=== PATIENT | male | born 1985 | race Caucasian/White ===

== ENCOUNTER 2024-03-29 09:32 | Outpatient (AMB) | payer OTHER, SELFPAY ==
--- NOTE | 2024-03-29 09:40 | MHC.OFFWIV ---
Intake Vital Signs 03/29/24 09:41 Height 5 ft 6 in Weight 215 lb BMI 34.7 BP 110/80 Blood Pressure Location Lt brachial Position Sitting Pulse 77 Pulse Source Pulse Oximeter Temp 97.7 F Temp Source Temporal Artery Scan Pulse Oximetry (%) 95 Oxygen Delivery Method Room Air Intake Visit Reasons: COLLECTION ADMINISTRATOR Cough, Diff breathing, congestion Intake Note: pt is here today for cough diff breathing congestion started 10 days ago Patient Tobacco Use Status: Current everyday Tobacco user Allergies No Known Allergies Allergy (Verified 03/29/24 09:43) Do you need a note to return to daycare/school/sports/work: No HPI HPI Comments History of Present Illness Details Patient is a 39-year-old male in today for sick visit. States he has developed cough and chest tightness for the past 10 days that has gotten progressively worse. Patient states it is worse at night. Has not seen primary care provider in over 10 years. Current everyday cigarette smoker. Denies sick contacts. Denies fever, sore throat, dizziness, chest pain, shortness a breath Patient states chief complaint are cough and chest tightness. Not currently taking any medications On exam patient has bilateral wheeze throughout. Not expectorating mucus at this time. No fever. Not in acute distress. Heart sounds normal. S1-S2. Will administer an office nebulizer treatment. Will give patient albuterol, prednisone, Symbicort. PFSH Social History Patient Tobacco Use Status: Current everyday Tobacco user Review of Systems Const All systems reviewed & are unremarkable except as noted in HPI and below Denies chills and Denies malaise Eyes Denies blurry vision ENT Denies vertigo, Denies dizziness, Denies otalgia, Denies post nasal drip, Denies sinus pain and Denies sore throat Card Denies chest pain, Denies leg edema, Denies lightheadedness and Denies dyspnea Resp Reports cough and Denies dyspnea GI Denies diarrhea, Denies nausea and Denies vomiting Neuro Denies vertigo and Denies dizziness Physical Exam Vital Signs: Last Vital Signs Temp 97.7 F 03/29/24 09:41 Pulse 77 03/29/24 09:41 BP 110/80 03/29/24 09:41 Pulse Ox 95 03/29/24 09:41 Oxygen Delivery Method Room Air 03/29/24 09:41 BMI result Body Mass Index 34.7 Vital signs reviewed stable. Const Other: Appearance: Alert.? Oriented X3.? No acute distress.? Head: Normocephalic, atraumatic, no step-offs or deformities Eyes: Pupils equal, round and reactive to light.? ENT: Pharynx normal.?TM intact and pearly delgado. Neck: Normal inspection.? Neck supple.? CVS: Normal heart rate and rhythm.? Pulses normal.? Respiratory: No respiratory distress.? bilateral wheeze upper lobes. ? Extremities: No lower extremity edema.? Neuro: Oriented X 3.? No motor deficit.? No sensory deficit. Office Procedures Nebulizer Treatment Nebulizer Treatment [id number]-Addrsmvgu/MDI RX initial, or Nebulizer Subsequent Treatment Office Meds ipratropium 0.5 mg-albuterol 3 mg (2.5 mg base)/3 mL nebulization soln Performing Provider: WARREN Pickett Performing Location: [facility]3] Administered by: WARREN Pickett on 03/29/24 10:01 Dose Route Admin Location Dispensed Lot Number Expiration Date [facility] Can Sorter 3 mL inhalation 3 mL [id number] 12/23/24 18550-006-59 Assessment & Plan Assessment & Plan (1) Bronchitis: Comment: Patient had in office nebulization treatment with good effect. Will also give patient prednisone, albuterol, Symbicort. Patient has been advised to stop cigarette smoking. Patient has also been advised to establish care with PCP. Has been educated on signs of worsening symptoms and when to report back to the office or when to report to the ED Code(s): J40 - Bronchitis, not specified as acute or chronic Plan: Take your medications as prescribed. If you were prescribed antibiotics today, it is important that you take your medication to their entirety, do not skip any doses, do not finish them early. Follow-up with your primary care provider this week. Return to the emergency department with new or worsening symptoms. Such as fevers, chills, chest pain, shortness of breath, nausea, vomiting, dizziness, headache, vision changes, lethargy In case of emergency call 911 Plan Follow-up with PCP Orders: Orders AMB Nebulizer Treatment Today J40 - Bronchitis, not specified as acute or chronic SARS-CoV2/FLU/RSV Today J06.9 - Acute upper respiratory infection, unspecified Medications: New budesonide-formoterol 160-4.5 mcg/actuation (Symbicort) 2 puffs inhalation BID 10.2 grams 0RF prednisone 40 mg (2 x 20 mg) PO DAILY 10 tabs 0RF albuterol sulfate 90 mcg/actuation 2 puffs inhalation Q6H PRN 6.7 grams 0RF shortness of breath or wheezing Coding Level of Care Code Est Pt Level 3 (97699) Diagnoses Bronchitis J40 CPT Codes Nebulizer Treatment - Nebulizer Treatment, initial or subsequent: 85639-Neyhyufxp/MDI RX initial, or Nebulizer Subsequent Treatment ([id number]) Time Spent (min) 25
[2024-03-29 09:41] VITALS: BP 110/80; PULSE 77; TEMP 36.5; O2SAT 95; BMI 34.7
== END 2024-03-29 10:30 | disposition home or self-care (01) ==
PROVIDERS: Visit Provider Nurse Practitioner Primary Care
DX: J40 Bronchitis, not specified as acute or chronic (principal)
CPT/HCPCS: 94640; 99213; J7620

== ENCOUNTER 2024-03-29 13:19 | Outpatient (REF) | payer OTHER, SELFPAY ==
[2024-03-29 14:04] LABS: Influenza A PCR NEGATIVE (Negative); Influenza B PCR NEGATIVE (Negative); Resp Syncy Virus RNA Qual PCR NEGATIVE (Negative); SARS COV2 PCR INHOUSE NEGATIVE (Negative)
== END 2024-03-29 13:20 | disposition home or self-care (01) ==
LOC: HO.HMGCLNP 13:19
PROVIDERS: Visit Provider Nurse Practitioner Primary Care
DX: J06.9 Acute upper respiratory infection, unspecified (principal)
CPT/HCPCS: 0241U

== ENCOUNTER 2024-11-20 09:14 | Outpatient (REF) | payer OTHER, SELFPAY ==
--- NOTE | ~2024-11-20 | XR_ITS ---
CLINICAL HISTORY: R05.9 - Cough, unspecified 2 view chest Comparison: None Findings: No consolidation or pneumothorax/pleural effusion. Mild peribronchial wall thickening. Cardiomediastinal silhouette is normal. No mediastinal shift or tracheal deviation. Osseous structures intact. Impression: 1. Mild central bronchial wall thickening. 2. No airspace disease. This document has been electronically signed by: Eric Mar MD on 11/23/2024 11:39:02
[2024-11-20 10:43] LABS: MANUAL DIFF FLAG NO
[2024-11-20 10:51] LABS: Basophils Absolute Auto 0.1 X10*3/uL (0.0-0.2); Basophils Percent Auto 0.8 % (0-2); Eosinophils Absolute Auto 0.1 X10*3/uL (0.0-0.4); Eosinophils Percent Auto 1.5 % (0-4); Hematocrit 46.3 % (42.0-52.0); Imm Gran Abs Auto 0.01 X10*3/uL (0.00-0.03); Imm Gran Pct Auto 0.2 % (0.0-0.4); Lymphocytes Absolute Auto 2.5 X10*3/uL (1.2-4.9); Lymphocytes Percent Auto 37.9 % (20-40); Mean Corpuscular HGB Conc 34.6 g/dl (31.0-36.0); Mean Corpuscular Hemoglobin 30.2 pg (27.0-33.0); Mean Corpuscular Volume 87.5 fL (80.0-98.0); Monocytes Absolute Auto 0.6 X10*3/uL (0.1-1.2); Monocytes Percent Auto 9.3 % (2-11); Neutrophils Absolute Auto 3.3 x10*3/uL (2.0-8.3); Neutrophils Percent Auto 50.3 % (45-73); Platelet Count 303 X10*3/uL (160-400); Red Blood Count 5.29 X10*6/uL (4.60-5.80); Red Cell Distribution Width 12.6 % (11.0-16.0); White Blood Count 6.6 X10*3/uL (4.8-10.8)
[2024-11-20 11:16] LABS: Appearance Urine Clear; Color Urine Dark Yellow; Glucose Urine UA Negative (Negative); Leukocyte Esterase Urine Negative (Negative); Nitrite Urine Negative (Negative); PH 5.5 (5.0-9.0); Specific Gravity - Urine 1.025 (1.005-1.025); UMIC TRIGGER UACC YES; Urine Blood Negative (Negative); Urine Ketones Trace mg/dL (Negative); Urine Protein 30 (1+) mg/dL (Neg-Trace)
[2024-11-20 11:25] LABS: Bacteria Urine None Seen (None Seen); Hyaline Casts Urine 0-2 /LPF (0-2); RBC Urine 0-2 /HPF (0-2); Squamous Epithelial Cell Urine 0-2 /HPF (0-2); WBC Urine 0-5 /HPF (0-5)
[2024-11-20 11:25] LABS: Alanine Aminotransferase 45 U/L (0-40); Albumin Level 4.5 g/dL (3.5-5.0); Alkaline Phosphatase 101 U/L (39-117); Anion Gap 9 (12-20); Aspartate Amino Transferase 29 U/L (5-37); Bilirubin Total 0.4 mg/dL (0.0-1.0); Blood Urea Nitrogen 8 mg/dL (9-16); Calcium 9.4 mg/dL (8.4-10.2); Carbon Dioxide 29 mmol/L (22-29); Chloride 105 mmol/L (96-108); Cholesterol 301 mg/dL (<200); Estimated Glomerular Filt Rate > 60; Glucose Fasting 89 mg/dL (60-99); HDL Cholesterol 37 mg/dL (>40); LDL Cholesterol Calculated 219 mg/dL (<100); Potassium 4.4 mmol/L (3.3-5.1); Sodium 139 mmol/L (135-145); Total Protein 8.2 g/dL (6.5-8.0); Triglycerides 228 mg/dL (<150)
[2024-11-20 11:42] LABS: TSH reflex Free T4 2.48 uIU/mL (0.32-4.0); Vitamin D 25-OH Total 10.5 ng/mL (>30)
== END 2024-11-20 09:15 | disposition home or self-care (01) ==
LOC: HO.XRAY 09:14
PROVIDERS: Visit Provider Internal Medicine
DX: Z00.00 Encounter for general adult medical examination without abnormal findings (principal); E78.00 Pure hypercholesterolemia, unspecified; E55.9 Vitamin D deficiency, unspecified; E66.9 Obesity, unspecified; Z68.36 Body mass index [BMI] 36.0-36.9, adult; D64.9 Anemia, unspecified; R05.9 Cough, unspecified; R30.0 Dysuria; F17.200 Nicotine dependence, unspecified, uncomplicated
CPT/HCPCS: 36415; 71046; 80053; 80061; 81001; 82306; 84443; 85025; 96127; 99386

== ENCOUNTER 2024-11-20 09:14 | Outpatient (AMB) | payer OTHER, SELFPAY ==
[2024-11-20 09:16] VITALS: BP 110/78; PULSE 79; O2SAT 95; BMI 36.0
--- NOTE | 2024-11-20 09:16 | A.OFFPC_ITS ---
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 Accompanied by: Self / Same As Patient Allergies No Known Allergies Allergy (Verified 11/20/24 09:47) Medication List - Last Reconciled 11/20/24 by Alexys Gonzalez MD albuterol sulfate 90 mcg/actuation 2 puffs inhalation Q6H PRN budesonide-formoterol 160-4.5 mcg/actuation (Symbicort) 2 puffs inhalation BID Tobacco use date assessed: 11/20/24 Dental Screening Dental Screen Date: 11/20/24 Did you have a dental visit in the last 12 months?: No Did you have a dental problem in the last 6 months where you did not have access to dental care?: No Was dental information given to patient?: Patient has dentist HPI establish care/ requesting pe HPI Details Patient comes in today for his annual physical examination and to reestablish care - he used to see Dr. Jn masters at our office in [place] but has not been back to see her since his last visit on 11/18/2018 Patient states that he currently feels okay and mainly just needs his Symbicort Rx refilled He denies any headaches or dizziness Denies any chest pains, no SOB No nausea/vomiting, no abdominal pain No change in bowel habits noted He denies any acute urinary symptoms States that he is currently still smoking a pack a day and has been smoking since 2004 [facility] Medical History Spondylolisthesis of lumbosacral region Obesity (BMI 30-39.9) Vitamin D deficiency Pure hypercholesterolemia Smoker Surgical History (Updated 11/20/24 @ 10:11 by Alexys Gonzalez MD) No pertinent past surgical history Family History (Updated 11/20/24 @ 11:05 by Alexys Gonzalez MD) Mother Diabetes mellitus Father Myocardial infarction Social History Housing: Apartment Patient Tobacco Use Status: Current everyday Tobacco user e-Cigarette/Vaping Use: Never Used service: No Current occupational status: unemployed Current occupational exposures/hazards: No Cognitive needs: No Hearing needs: No Vision needs: No Questionnaire PHQ-9 Over the last 2 weeks, how often have you been bothered by any of the following problems? 1. Little interest or pleasure in doing things: not at all 2. Feeling down, depressed, or hopeless: not at all 3. Trouble falling or staying asleep, or sleeping too much: not at all 4. Feeling tired or having little energy: not at all 5. Poor appetite or overeating: not at all 6. Feeling bad about yourself - or that you are a failure or have let yourself or your family down: not at all 7. Trouble concentrating on things, such as reading the newspaper or watching television: not at all 8. Moving or speaking so slowly that other people could have noticed. Or the opposite - being so fidgety or restless that you have been moving around a lot more than usual: not at all 9. Thoughts that you would be better off or of hurting yourself in some way: not at all Total score: 0 Depression Screening Interpretation: Negative Depression Screening Done: Yes 49764 - PHQ-9 Billing: Yes Source: Developed by Drs. Bradley Jacobson, Nikky Evangelista, Car Ferrer and colleagues, with an educational fernanda from [employer]. Thrive Questionnaire Date Thrive assessed: 11/20/24 I am a: Patient What is your living situation today?: I have a steady place to live Within the past 12 months, did the food you bought not last and you didn't have the money to get more?: Never true Within the past 12 months, did you worry whether your food would run out before you got money to buy more?: Never true Do you have trouble paying for medicines?: No Do you have trouble getting transportation to medical appointments?: No Do you have trouble paying your heating and electricity bill?: No Do you have trouble taking care of your child, family member or friend?: No Do you have trouble with day-to-day activities such as bathing, preparing meals, shopping, managing finances, etc.?: No Are you currently unemployed and looking for a job?: No Are you interested in more education?: No Please select the resources that you would like help with: None Currently or been in a relationship where the following occur: No concerns reported THRIVE Score: 0 AUDIT C Alcohol Use Questionnaire (AUDIT-C) 1. How often do you have a drink containing alcohol?: Never 3. How often do you have six or more drinks on one occasion?: Never Total Score: 0 Score Reviewed/Action Taken: Yes TC-7 AMB Questionnaire TC-7 Date TC - 7 assessed: 11/20/24 Feeling nervous, anxious, or on edge: 0 = Not at all Not being able to stop or control worryin = Not at all Worrying too much about different things: 0 = Not at all Trouble relaxin = Not at all Being so restless that it is hard to sit still: 0 = Not at all Becoming easily annoyed or irritable: 0 = Not at all Feeling afraid as if something awful might happen: 0 = Not at all Total TC-7 score (0-4 normal; 5-9 mild; 10-14 moderate; 15-21 severe): 0 Source: Developed by Drs. Bradley Jacobson, Nikky Evangelista, Car Ferrer and colleagues, with an educational fernanda from [employer]. Review of Systems Const Denies chills, Denies fatigue, Denies fever(s), Denies headache(s), Denies malaise and Denies weakness Eyes Denies blurry vision, Denies change in vision, Denies irritation and Denies itchy eyes ENT Denies dysphagia, Denies dizziness, Denies otalgia, Denies headache(s), Denies nasal congestion, Denies neck pain, Denies odynophagia and Denies sore throat Card Denies chest pain, Denies rapid heart rate, Denies irregular heart rhythm, Denies palpitations and Denies dyspnea Resp Reports chest congestion (at times, mostly mild - thinks this is related to his smoking), Reports cough (on and off - thinks this is mostly because of his smoking), Denies dyspnea and Denies wheezing GI Denies abdominal pain, Denies bloating, Denies constipation, Denies dysphagia, Denies heartburn, Denies diarrhea, Denies nausea, Denies odynophagia and Denies vomiting Denies hematuria, Denies difficulty urinating, Denies dysuria, Denies urinary frequency and Denies urinary urgency Musc Reports back pain (on and off, over the lower back), Denies arthralgias, Denies joint swelling, Denies muscle weakness and Denies neck pain Skin/Breast Denies change in pigmentation, Denies lesions, Denies rash and Denies unusual bruising Neuro Denies dizziness, Denies headache(s), Denies paresthesias and Denies weakness Endo Denies fatigue and Denies palpitations Aller/Immun Denies itchy eyes and Denies wheezing Physical exam (Primary Care) Vital Signs: Last Vital Signs Pulse 79 11/20/24 09:16 BP 110/78 11/20/24 09:16 Pulse Ox 95 11/20/24 09:16 Oxygen Delivery Method Room Air 11/20/24 09:16 BMI result Body Mass Index 36.0 Tobacco/Smoking Status: Tobacco use Status Tobacco use date assessed 11/20/24 11/20/24 09:19 Patient Tobacco Use Status Current everyday Tobacco 11/20/24 09:19 e-Cigarette/Vaping Use Never Used 11/20/24 09:26 PHQ-9: PHQ-9 Score PHQ-9: Total score 0 11/20/24 09:26 Depression Screening Interpretation: Negative Thrive Assessment: Date of Thrive Assessment Date Thrive assessed 11/20/24 11/20/24 09:26 Currently or been in a relationship where the following occur: No concerns reported Const General: no acute distress, alert and awake Orientation/consciousness: patient oriented x3 HENMT Head: Yes normocephalic and Yes atraumatic Ears: external ears normal, TM's normal bilaterally and EAC's normal General nose exam: No nasal discharge present Face and sinus: Yes normal facial exam and Yes sinuses nontender Teeth and gingiva: dentition normal Throat: Yes posterior oropharynx normal and Yes tonsils normal (no TP congestion) Eyes Eyelids: Yes eyelids normal Conjunctivae: conjunctivae normal Pupils: Equal, round and reactive pupils present EOM: EOMs intact bilaterally Neck Neck: Yes supple and No lymphadenopathy Thyroid: Thyroid normal Resp Auscultation: clear to auscultation bilaterally, no rales, rhonchi (occasional) and no wheezes Cardio Rate: regular rate Rhythm: regular rhythm Heart sounds: no murmurs GI Palpation (GI): Soft to palpation, nontender and No hepatosplenomegaly present Auscultation: normal bowel sounds General: Yes no CVA tenderness Back/Spine/Pelvis Back: no CVA tenderness Cervical Spine: No Cervical spine tenderness Thoracic/Lumbar Spine: lumbar spinal tenderness (mild) Skin Lesions: no lesions Rashes: no rashes Neuro General: patient oriented x3, moves all extremities, no focal motor deficits and CN's II-XI intact bilaterally Cranial nerves: Yes Equal, round and reactive pupils present Cognition (Neuro): normal cognition Gait exam (Neuro): Normal gait present Extrem General: Yes no clubbing, cyanosis or edema Coding Level of Care Code New Pt Prev Care 40-64y(80502) Diagnoses Annual physical exam Z00.00 Pure hypercholesterolemia E78.00 Vitamin D deficiency E55.9 Smoker F17.200 Obesity (BMI 30-39.9) E66.9 Additional Codes PHQ-9 - 17104 - PHQ-9 Billing: Yes ([id number]) Assessment & Plan Assessment & Plan (1) Annual physical exam: Code(s): Z00.00 - Encounter for general adult medical examination without abnormal findings Category: Medical Plan: Check labs (2) Pure hypercholesterolemia: Code(s): E78.00 - Pure hypercholesterolemia, unspecified Category: Medical Plan: His LDL cholesterol level was very high at 194 mg/dl when it was last checked in 2018 Reinforced low cholesterol diet Patient used to be on Simvastatin 10 mg QD but he has not taken the medication in over 5 years now Will have him recheck his labs and fasting lipids and if his cholesterol numbers remain high or are even higher than previous, then we will likely need to start him back on some Rx for his cholesterol (3) Vitamin D deficiency: Code(s): E55.9 - Vitamin D deficiency, unspecified Category: Medical Plan: Will also recheck his Vitamin D level for follow up - states that he has not taken any Vitamin D supplements in a few years now (4) Smoker: Code(s): F17.200 - Nicotine dependence, unspecified, uncomplicated Category: Social Hx Plan: Patient is counseled again on smoking cessation - states that he has no plans to quit at this time Per request, will refill his Rx for Symbicort 160-4.5 mcg 1 inhalation BID Continue Ventolin HFA 1 to 2 inhalations Q 6 hours PRN for now Will send him for chest x-rays for further evaluation but will consider having him go for PFTs at some point for further evaluation as he denies any Hx of asthma (although his previous PCP marked asthma as one of his diagnosis in his chart) and thinks that he is using his inhalers mostly because of his smoking (5) Obesity (BMI 30-39.9): Code(s): E66.9 - Obesity, unspecified Category: Medical Plan: Discussed diet/exercise as tolerated/lose weight Plan Follow up in 3 months Orders: Orders Complete Blood Count Auto Diff Today D64.9 - Anemia, unspecified, Z00.00 - Encounter for general adult medical examination without abnormal findings Comprehensive [place]. Panel Fast Today E78.00 - Pure hypercholesterolemia, unspecified, Z00.00 - Encounter for general adult medical examination without abnormal findings TSH reflex Free T4 Today E78.00 - Pure hypercholesterolemia, unspecified, Z00.00 - Encounter for general adult medical examination without abnormal findings UA CC w/rflx Micro + Cult Today R30.0 - Dysuria, Z00.00 - Encounter for general adult medical examination without abnormal findings Vitamin D 25-OH Total Today E55.9 - Vitamin D deficiency, unspecified, Z00.00 - Encounter for general adult medical examination without abnormal findings Lipid Panel Today E78.00 - Pure hypercholesterolemia, unspecified, Z00.00 - Encounter for general adult medical examination without abnormal findings XR chest 2V Today F17.200 - Nicotine dependence, unspecified, uncomplicated, R05.9 - Cough, unspecified Medications: Refilled budesonide-formoterol 160-4.5 mcg/actuation (Symbicort) 2 puffs inhalation BID 10.2 grams 3RF
== END 2024-11-20 10:03 | disposition home or self-care (01) ==
PROVIDERS: Visit Provider Internal Medicine
DX: Z00.00 Encounter for general adult medical examination without abnormal findings (principal); E78.00 Pure hypercholesterolemia, unspecified; E66.9 Obesity, unspecified; Z68.36 Body mass index [BMI] 36.0-36.9, adult; E55.9 Vitamin D deficiency, unspecified; F17.200 Nicotine dependence, unspecified, uncomplicated

== ENCOUNTER → 2024-11-20 10:49 | Outpatient (BNV) | payer OTHER, SELFPAY | PROVIDERS: Visit Provider Radiology Diagnostic Radiology | DX: R05.9 Cough, unspecified (principal); J98.09 Other diseases of bronchus, not elsewhere classified | CPT/HCPCS: 71046 ==

== ENCOUNTER 2025-02-20 10:37 | Outpatient (AMB) | payer OTHER, SELFPAY ==
[2025-02-20 10:59] VITALS: BP 116/80; PULSE 84; O2SAT 98; BMI 36.0
--- NOTE | 2025-02-20 10:59 | A.OFFPC_ITS ---
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 Accompanied by: Self / Same As Patient Allergies No Known Allergies Allergy (Verified 02/20/25 11:38) Medication List - Last Reconciled 02/20/25 by Alexys Gonzalez MD albuterol sulfate 90 mcg/actuation 2 puffs inhalation Q6H PRN budesonide-formoterol 160-4.5 mcg/actuation (Symbicort) 2 puffs inhalation BID Tobacco use date assessed: 02/20/25 Dental Screening Dental Screen Date: 02/20/25 Did you have a dental visit in the last 12 months?: Yes Did you have a dental problem in the last 6 months where you did not have access to dental care?: No Was dental information given to patient?: Patient has dentist HPI Follow Up HPI Details Patient comes in today for his follow up visit States that he has a painful wart on the plantar aspect of his left foot that has been bothering him (pain) for at least the past 2 months now States that he feels okay otherwise He denies any headaches or dizziness Denies any chest pains, no shortness of breath No nausea/vomiting, no abdominal pain No change in bowel habits noted Adds that he also has had blurring of vision in both eyes for a while now and he finds it hard to read nowadays - would like to have his eyes checked out He would also like to go over the results of his labs done back at the end of October 2024 after he had his last physical examination [facility] Medical History Elevated LFTs Mixed hyperlipidemia Spondylolisthesis of lumbosacral region Obesity (BMI 30-39.9) Vitamin D deficiency Pure hypercholesterolemia Smoker Surgical History No pertinent past surgical history Family History Mother Diabetes mellitus Father Myocardial infarction Social History Housing: Apartment Patient Tobacco Use Status: Current everyday Tobacco user e-Cigarette/Vaping Use: Never Used service: No Current occupational status: unemployed Current occupational exposures/hazards: No Cognitive needs: No Hearing needs: No Vision needs: No Questionnaire PHQ-9 Over the last 2 weeks, how often have you been bothered by any of the following problems? 1. Little interest or pleasure in doing things: not at all 2. Feeling down, depressed, or hopeless: not at all 3. Trouble falling or staying asleep, or sleeping too much: not at all 4. Feeling tired or having little energy: not at all 5. Poor appetite or overeating: not at all 6. Feeling bad about yourself - or that you are a failure or have let yourself or your family down: not at all 7. Trouble concentrating on things, such as reading the newspaper or watching television: not at all 8. Moving or speaking so slowly that other people could have noticed. Or the opposite - being so fidgety or restless that you have been moving around a lot more than usual: not at all 9. Thoughts that you would be better off or of hurting yourself in some way: not at all Total score: 0 Depression Screening Interpretation: Negative Depression Screening Done: Yes 86689 - PHQ-9 Billing: Yes Source: Developed by Drs. Bradley Jacobson, Nikky Evangelista, Car Ferrer and colleagues, with an educational fernanda from [employer]. Thrive Questionnaire Date Thrive assessed: 02/20/25 I am a: Patient What is your living situation today?: I have a steady place to live Within the past 12 months, did the food you bought not last and you didn't have the money to get more?: Never true Within the past 12 months, did you worry whether your food would run out before you got money to buy more?: Never true Do you have trouble paying for medicines?: No Do you have trouble getting transportation to medical appointments?: No Do you have trouble paying your heating and electricity bill?: No Do you have trouble taking care of your child, family member or friend?: No Do you have trouble with day-to-day activities such as bathing, preparing meals, shopping, managing finances, etc.?: No Are you currently unemployed and looking for a job?: No Are you interested in more education?: No Please select the resources that you would like help with: None Currently or been in a relationship where the following occur: No concerns reported THRIVE Score: 0 AUDIT C Alcohol Use Questionnaire (AUDIT-C) 1. How often do you have a drink containing alcohol?: Never 3. How often do you have six or more drinks on one occasion?: Never Total Score: 0 Score Reviewed/Action Taken: Yes TC-7 AMB Questionnaire TC-7 Date TC - 7 assessed: 02/20/25 Feeling nervous, anxious, or on edge: 0 = Not at all Not being able to stop or control worryin = Not at all Worrying too much about different things: 0 = Not at all Trouble relaxin = Not at all Being so restless that it is hard to sit still: 0 = Not at all Becoming easily annoyed or irritable: 0 = Not at all Feeling afraid as if something awful might happen: 0 = Not at all Total TC-7 score (0-4 normal; 5-9 mild; 10-14 moderate; 15-21 severe): 0 Source: Developed by Drs. Bradley Jacobson, Nikky Evangelista, Car Ferrer and colleagues, with an educational fernanda from [employer]. Review of Systems Const Denies chills, Denies fatigue, Denies fever(s) and Denies headache(s) Eyes Reports blurry vision (in both eyes) ENT Denies dysphagia, Denies dizziness, Denies otalgia, Denies headache(s), Denies neck pain, Denies odynophagia and Denies sore throat Card Denies chest pain, Denies irregular heart rhythm, Denies palpitations and Denies dyspnea Resp Reports chest congestion (at times, mostly mild - thinks this is related to his smoking), Reports cough (on and off - thinks this is mostly because of his smoking), Denies dyspnea and Denies wheezing GI Denies abdominal pain, Denies constipation, Denies dysphagia, Denies heartburn, Denies diarrhea, Denies nausea, Denies odynophagia and Denies vomiting Denies difficulty urinating, Denies dysuria and Denies urinary frequency Musc Reports back pain (on and off, over the lower back), Denies arthralgias and Denies neck pain Skin/Breast Details: (+) large painful wart over the plantar aspect of the left foot Denies rash Neuro Denies dizziness, Denies headache(s) and Denies paresthesias Endo Denies fatigue and Denies palpitations Aller/Immun Denies wheezing Physical exam (Primary Care) Vital Signs: Last Vital Signs Pulse 84 02/20/25 10:59 BP 116/80 02/20/25 10:59 Pulse Ox 98 02/20/25 10:59 Oxygen Delivery Method Room Air 02/20/25 10:59 BMI result Body Mass Index 36.0 Tobacco/Smoking Status: Tobacco use Status Tobacco use date assessed 02/20/25 02/20/25 11:06 Patient Tobacco Use Status Current everyday Tobacco 02/20/25 11:06 e-Cigarette/Vaping Use Never Used 02/20/25 11:06 PHQ-9: PHQ-9 Score PHQ-9: Total score 0 02/20/25 11:50 Depression Screening Interpretation: Negative Thrive Assessment: Date of Thrive Assessment Date Thrive assessed 02/20/25 02/20/25 11:06 Currently or been in a relationship where the following occur: No concerns reported Const General: no acute distress and alert HENMT Ears: TM's normal bilaterally and EAC's normal Throat: Yes posterior oropharynx normal and Yes tonsils normal (no TP congestion) Neck Neck: Yes supple and No lymphadenopathy Thyroid: Thyroid normal Resp Auscultation: clear to auscultation bilaterally, no crackles, no rales, rhonchi (occasional) and no wheezes Cardio Rate: regular rate Rhythm: regular rhythm Heart sounds: no murmurs GI Palpation (GI): Soft to palpation and nontender Auscultation: normal bowel sounds General: Yes no CVA tenderness Back/Spine/Pelvis Back: no CVA tenderness Cervical Spine: No Cervical spine tenderness Thoracic/Lumbar Spine: lumbar spinal tenderness Skin Rashes: no rashes Extrem Other: (+) tender raised wart-like lesion over the plantar aspect of the left foot at the 'ball' portion of the foot General: Yes no clubbing, cyanosis or edema Results Reviewed Results Reviewed: Laboratory Tests 11/20/24 11/20/24 10:36 10:42 WBC 6.6 Hgb 16.0 Hct 46.3 Plt Count 303 Sodium 139 Potassium 4.4 Creatinine 0.75 Estimated GFR > 60 Fasting Glucose 89 Calcium 9.4 AST 29 ALT 45 H Triglycerides 228 H Cholesterol 301 H LDL Cholesterol, Calc 219 H HDL Cholesterol 37 L 25-OH Vitamin D Total 10.5 L TSH 2.48 Ur Specific [place] 1.025 Urine Protein 30 (1+) H Urine Glucose (UA) Negative Urine Blood Negative Urine Nitrite Negative Ur Leukocyte Esterase Negative Coding Level of Care Code Est Pt Level 4 (68087) Complex EM visit Add On G2211 Diagnoses Mixed hyperlipidemia E78.2 Spondylolisthesis of lumbosacral region M43.17 Elevated LFTs R79.89 Vitamin D deficiency E55.9 Blurred vision, bilateral H53.8 Plantar wart of left foot B07.0 Smoker F17.200 Obesity (BMI 30-39.9) E66.9 Additional Codes PHQ-9 - 92651 - PHQ-9 Billing: Yes ([id number]) Assessment & Plan Assessment & Plan (1) Mixed hyperlipidemia: Code(s): E78.2 - Mixed hyperlipidemia Category: Medical Plan: Results of his labs done back in October 2024 reviewed and discussed with patient - have advised patient that his cholesterol numbers are still high and are higher than they were back in 2018 His total cholesterol is currently at 201 mg/dl and LDL cholesterol is at 219 mg/dl; serum TG is also elevated at 228 mg/dl Reinforced low cholesterol diet Have advised patient that he will likely need to go back on cholesterol-lowering medications (was on Simvastatin in the past) but he would like to try lowering his numbers with diet modification at this time States that if he cannot make any headway in his numbers over the next 3 months, then he will agree to go back on cholesterol medications Will have him recheck his labs and fasting lipids in 3 months for follow up (2) Spondylolisthesis of lumbosacral region: Comment: lumbar spine MRI done in 08/2013 revealed (+) grade 1 anterolisthesis at L5-S1, with minimal disc bulge at L1-L2; was seen by Dr. Moise in 08/2015 and recommended conservative management at the time Code(s): M43.17 - Spondylolisthesis, lumbosacral region Category: Medical Plan: Reinforced activity and weight-lifting restrictions (3) Elevated LFTs: Code(s): R79.89 - Other specified abnormal findings of blood chemistry Category: Medical Plan: His serum ALT was slightly elevated on his recent labs; AST was normal This is likely related to his weight (hepatosteatosis) Will continue to monitor his LFTs regularly (4) Vitamin D deficiency: Code(s): E55.9 - Vitamin D deficiency, unspecified Category: Medical Plan: He is advised that his Vitamin D level is very low on his recent labs Will start him on Vitamin D3 2000 units QD (5) Blurred vision, bilateral: Code(s): H53.8 - Other visual disturbances Category: Medical Plan: Will refer patient to ophthalmology for further evaluation and management (6) Plantar wart of left foot: Code(s): B07.0 - Plantar wart Category: Medical Plan: Will refer patient to podiatry for further evaluation and management (7) Smoker: Code(s): F17.200 - Nicotine dependence, unspecified, uncomplicated Category: Social Hx Plan: Patient is counseled again on smoking cessation - states that he has no plans to quit at this time Continue Symbicort 160-4.5 mcg 1 inhalation BID and Ventolin HFA 1 to 2 inhalations Q 6 hours PRN for now We sent him for chest x-rays a few months ago - chest x-rays done in November 2024 came out normal aside from some mild central bronchial wall thickening Will consider sending him for PFTs at some point for further evaluation as he denies any Hx of asthma and he thinks that he is using his inhalers mostly because of his smoking although his previous PCP marked asthma as one of his diagnosis in his chart (8) Obesity (BMI 30-39.9): Code(s): E66.9 - Obesity, unspecified Category: Medical Plan: Reinforced diet/exercise as tolerated/lose weight Plan Follow up in 3 months Orders: Orders Complete Blood Count Auto Diff 3 Months D64.9 - Anemia, unspecified Lipid Panel 3 Months E78.00 - Pure hypercholesterolemia, unspecified UA CC w/rflx Micro + Cult 3 Months R30.0 - Dysuria Vitamin D 25-OH Total 3 Months E55.9 - Vitamin D deficiency, unspecified Comprehensive [place]. Panel Fast 3 Months E78.00 - Pure hypercholesterolemia, unspecified Referrals Ophthalmology Referral H53.8 - Other visual disturbances Podiatry Referral B07.0 - Plantar wart Medications: New cholecalciferol (vitamin D3) 125 mcg PO DAILY 90 days 90 caps 3RF
== END 2025-02-20 11:52 | disposition home or self-care (01) ==
LOC: HO.HMCH 10:38
PROVIDERS: PCP Internal Medicine; Visit Provider Internal Medicine
DX: E78.2 Mixed hyperlipidemia (principal); M43.17 Spondylolisthesis, lumbosacral region; R79.89 Other specified abnormal findings of blood chemistry; E55.9 Vitamin D deficiency, unspecified; E66.9 Obesity, unspecified; Z68.36 Body mass index [BMI] 36.0-36.9, adult; H53.8 Other visual disturbances; B07.0 Plantar wart; F17.200 Nicotine dependence, unspecified, uncomplicated

== ENCOUNTER → 2025-02-20 10:37 | Outpatient (BNVA) | payer OTHER, SELFPAY | PROVIDERS: PCP Internal Medicine; Visit Provider Internal Medicine | DX: H53.8 Other visual disturbances (principal); E78.2 Mixed hyperlipidemia; M43.17 Spondylolisthesis, lumbosacral region; R79.89 Other specified abnormal findings of blood chemistry; E55.9 Vitamin D deficiency, unspecified; B07.0 Plantar wart; E66.9 Obesity, unspecified; R30.0 Dysuria; D64.9 Anemia, unspecified; F17.200 Nicotine dependence, unspecified, uncomplicated; Z68.36 Body mass index [BMI] 36.0-36.9, adult | CPT/HCPCS: 96127; 99212 ==

== ENCOUNTER 2025-05-30 11:01 | Outpatient (AMB) | payer OTHER, SELFPAY ==
[2025-05-30 11:06] VITALS: BP 112/80; PULSE 81; O2SAT 97; BMI 34.9
--- NOTE | 2025-05-30 11:06 | A.OFFPC_ITS ---
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 Accompanied by: Self / Same As Patient Allergies No Known Allergies Allergy (Verified 05/30/25 11:50) Medication List - Last Reconciled 05/30/25 by Alexys Gonzalez MD albuterol sulfate 90 mcg/actuation 2 puffs inhalation Q6H PRN budesonide-formoterol 160-4.5 mcg/actuation (Symbicort) 2 puffs inhalation BID cholecalciferol (vitamin D3) 125 mcg PO DAILY 90 days Tobacco use date assessed: 05/30/25 Dental Screening Dental Screen Date: 05/30/25 Did you have a dental visit in the last 12 months?: Yes Did you have a dental problem in the last 6 months where you did not have access to dental care?: No Was dental information given to patient?: Patient has dentist HPI 3 Months HPI Details Patient comes in today for his follow up visit States that he feels okay He denies any headaches or dizziness Denies any chest pains, no shortness of breath No nausea/vomiting, no abdominal pain No change in bowel habits noted He was not able to get his follow up labs done prior to his apppointment today - states that he forgot to do them but he can go and get them done in a couple of days He is scheduled to be seen by ophthalmology sometime in September 2025 for his blurred vision PFSH Medical History Elevated LFTs Mixed hyperlipidemia Spondylolisthesis of lumbosacral region Obesity (BMI 30-39.9) Vitamin D deficiency Pure hypercholesterolemia Smoker Surgical History No pertinent past surgical history Family History Mother Diabetes mellitus Father Myocardial infarction Social History Housing: Apartment Patient Tobacco Use Status: Current everyday Tobacco user e-Cigarette/Vaping Use: Never Used service: No Current occupational status: unemployed Current occupational exposures/hazards: No Cognitive needs: No Hearing needs: No Vision needs: No Questionnaire PHQ-9 Over the last 2 weeks, how often have you been bothered by any of the following problems? 1. Little interest or pleasure in doing things: not at all 2. Feeling down, depressed, or hopeless: not at all 3. Trouble falling or staying asleep, or sleeping too much: not at all 4. Feeling tired or having little energy: not at all 5. Poor appetite or overeating: not at all 6. Feeling bad about yourself - or that you are a failure or have let yourself or your family down: not at all 7. Trouble concentrating on things, such as reading the newspaper or watching television: not at all 8. Moving or speaking so slowly that other people could have noticed. Or the opposite - being so fidgety or restless that you have been moving around a lot more than usual: not at all 9. Thoughts that you would be better off or of hurting yourself in some way: not at all Total score: 0 Depression Screening Interpretation: Negative Depression Screening Done: Yes 43193 - PHQ-9 Billing: Yes Source: Developed by Drs. Bradley Jacobson, Nikky Evangelista, Car Ferrer and colleagues, with an educational fernanda from [employer]. Thrive Questionnaire Date Thrive assessed: 05/30/25 I am a: Patient What is your living situation today?: I have a steady place to live Within the past 12 months, did the food you bought not last and you didn't have the money to get more?: Never true Within the past 12 months, did you worry whether your food would run out before you got money to buy more?: Never true Do you have trouble paying for medicines?: No Do you have trouble getting transportation to medical appointments?: No Do you have trouble paying your heating and electricity bill?: No Do you have trouble taking care of your child, family member or friend?: Yes Do you have trouble with day-to-day activities such as bathing, preparing meals, shopping, managing finances, etc.?: No Are you currently unemployed and looking for a job?: No Are you interested in more education?: No Please select the resources that you would like help with: None Currently or been in a relationship where the following occur: No concerns reported THRIVE Score: 0 AUDIT C Alcohol Use Questionnaire (AUDIT-C) 1. How often do you have a drink containing alcohol?: Never 3. How often do you have six or more drinks on one occasion?: Never Total Score: 0 Score Reviewed/Action Taken: Yes TC-7 AMB Questionnaire TC-7 Date TC - 7 assessed: 05/30/25 Feeling nervous, anxious, or on edge: 0 = Not at all Not being able to stop or control worryin = Not at all Worrying too much about different things: 0 = Not at all Trouble relaxin = Not at all Being so restless that it is hard to sit still: 0 = Not at all Becoming easily annoyed or irritable: 0 = Not at all Feeling afraid as if something awful might happen: 0 = Not at all Total TC-7 score (0-4 normal; 5-9 mild; 10-14 moderate; 15-21 severe): 0 Source: Developed by Drs. Bradley Jacobson, Nikky Evangelista, Car Ferrer and colleagues, with an educational fernanda from [facility]. Review of Systems Const Denies chills, Denies fatigue, Denies fever(s) and Denies headache(s) Eyes Reports blurry vision (in both eyes) ENT Denies dysphagia, Denies dizziness, Denies otalgia, Denies headache(s), Denies neck pain, Denies odynophagia and Denies sore throat Card Denies chest pain, Denies irregular heart rhythm, Denies palpitations and Denies dyspnea Resp Reports chest congestion (at times, mostly mild - thinks this is related to his smoking), Reports cough (on and off - thinks this is mostly because of his smoking), Denies dyspnea and Denies wheezing GI Denies abdominal pain, Denies constipation, Denies dysphagia, Denies heartburn, Denies diarrhea, Denies nausea, Denies odynophagia and Denies vomiting Denies difficulty urinating, Denies dysuria and Denies urinary frequency Musc Reports back pain (on and off, over the lower back), Denies arthralgias and Denies neck pain Skin/Breast Denies rash Neuro Denies dizziness, Denies headache(s) and Denies paresthesias Endo Denies fatigue and Denies palpitations Aller/Immun Denies wheezing Physical exam (Primary Care) Vital Signs: Last Vital Signs Pulse 81 05/30/25 11:06 BP 112/80 05/30/25 11:06 Pulse Ox 97 05/30/25 11:06 Oxygen Delivery Method Room Air 05/30/25 11:06 BMI result Body Mass Index 34.9 Tobacco/Smoking Status: Tobacco use Status Tobacco use date assessed 05/30/25 05/30/25 11:11 Patient Tobacco Use Status Current everyday Tobacco 05/30/25 11:11 e-Cigarette/Vaping Use Never Used 05/30/25 11:11 PHQ-9: PHQ-9 Score PHQ-9: Total score 0 05/30/25 11:51 Depression Screening Interpretation: Negative Thrive Assessment: Date of Thrive Assessment Date Thrive assessed 05/30/25 05/30/25 11:11 Currently or been in a relationship where the following occur: No concerns reported Const General: no acute distress and alert HENMT Ears: TM's normal bilaterally and EAC's normal Throat: Yes posterior oropharynx normal and Yes tonsils normal (no TP congestion) Neck Neck: Yes supple and No lymphadenopathy Thyroid: Thyroid normal Resp Auscultation: clear to auscultation bilaterally, no crackles, no rales, rhonchi (occasional) and no wheezes Cardio Rate: regular rate Rhythm: regular rhythm Heart sounds: no murmurs GI Palpation (GI): Soft to palpation and nontender Auscultation: normal bowel sounds General: Yes no CVA tenderness Back/Spine/Pelvis Back: no CVA tenderness Cervical Spine: No Cervical spine tenderness Thoracic/Lumbar Spine: lumbar spinal tenderness Skin Rashes: no rashes Extrem General: Yes no clubbing, cyanosis or edema Coding Level of Care Code Est Pt Level 4 (12860) Diagnoses Mixed hyperlipidemia E78.2 Spondylolisthesis of lumbosacral region M43.17 Elevated LFTs R79.89 Vitamin D deficiency E55.9 Blurred vision, bilateral H53.8 Plantar wart of left foot B07.0 Smoker F17.200 Obesity (BMI 30-39.9) E66.9 Additional Codes PHQ-9 - 60960 - PHQ-9 Billing: Yes ([id number]) Assessment & Plan Assessment & Plan (1) Mixed hyperlipidemia: Code(s): E78.2 - Mixed hyperlipidemia Category: Medical Plan: He was not able to get his follow up labs done prior to his appointment today but states that he will go and get these done in a couple of days Have reminded patient that his cholesterol numbers were higher on his recent labs than they were back in 2018 His total cholesterol was most recently at 201 mg/dl and LDL cholesterol was at 219 mg/dl; serum TG was also elevated at 228 mg/dl Reinforced low cholesterol diet Have advised patient that he will likely need to go back on cholesterol-lowering medications (was on Simvastatin in the past) but he would like to try lowering his numbers with diet modification alone for now States that if he cannot make any improvement on his numbers over the next few months, then he will agree to go back on cholesterol medications Will have him recheck his labs and fasting lipids in again in 4 months for follow up (2) Spondylolisthesis of lumbosacral region: Comment: lumbar spine MRI done in 08/2013 revealed (+) grade 1 anterolisthesis at L5-S1, with minimal disc bulge at L1-L2; was seen by Dr. Moise in 08/2015 and recommended conservative management at the time Code(s): M43.17 - Spondylolisthesis, lumbosacral region Category: Medical Plan: Reinforced activity and weight-lifting restrictions (3) Elevated LFTs: Code(s): R79.89 - Other specified abnormal findings of blood chemistry Category: Medical Plan: His serum ALT was slightly elevated on his most recent labs a few months ago; AST was normal This is likely related to his weight (hepatosteatosis) Will continue to monitor his LFTs regularly (4) Vitamin D deficiency: Code(s): E55.9 - Vitamin D deficiency, unspecified Category: Medical Plan: He is advised that his Vitamin D level is still very low on his recent labs We started him on Vitamin D3 5000 units QD previously but he apparently did not get his Rx - will resend Rx to his local pharmacy (5) Blurred vision, bilateral: Code(s): H53.8 - Other visual disturbances Category: Medical Plan: We referred patient to ophthalmology for further evaluation and management and he is scheduled to be seen for this sometime in September 2025 (6) Plantar wart of left foot: Code(s): B07.0 - Plantar wart Category: Medical Plan: Resolved - states that podiatry was able to remove/excise the painful wart on his foot a couple of months ago (7) Smoker: Code(s): F17.200 - Nicotine dependence, unspecified, uncomplicated Category: Social Hx Plan: Patient is counseled again on complete smoking cessation - states that he has no plans to quit at this time Continue Symbicort 160-4.5 mcg 1 inhalation BID and Ventolin HFA 1 to 2 inhalations Q 6 hours PRN for now Chest x-rays done in November 2024 came out normal aside from some mild central bronchial wall thickening Will consider sending him for PFTs at some point for further evaluation as he denies any Hx of asthma and he thinks that he is using his inhalers mostly because of his smoking although his previous PCP marked asthma as one of his diagnosis in his chart (8) Obesity (BMI 30-39.9): Code(s): E66.9 - Obesity, unspecified Category: Medical Plan: Reinforced diet/exercise as tolerated/lose weight Plan Follow up in 3 months Orders: Orders Comprehensive [place]. Panel Fast 4 Months E78.00 - Pure hypercholesterolemia, unspecified Lipid Panel 4 Months E78.00 - Pure hypercholesterolemia, unspecified Vitamin D 25-OH Total 4 Months E55.9 - Vitamin D deficiency, unspecified
== END 2025-05-30 11:54 | disposition home or self-care (01) ==
PROVIDERS: PCP Internal Medicine; Visit Provider Internal Medicine
DX: E78.2 Mixed hyperlipidemia (principal); M43.17 Spondylolisthesis, lumbosacral region; E66.9 Obesity, unspecified; Z68.35 Body mass index [BMI] 35.0-35.9, adult; R79.89 Other specified abnormal findings of blood chemistry; E55.9 Vitamin D deficiency, unspecified; H53.8 Other visual disturbances; B07.0 Plantar wart; F17.200 Nicotine dependence, unspecified, uncomplicated

== ENCOUNTER → 2025-05-30 11:01 | Outpatient (BNVA) | payer OTHER, SELFPAY | PROVIDERS: PCP Internal Medicine; Visit Provider Internal Medicine | DX: E78.2 Mixed hyperlipidemia (principal); M43.17 Spondylolisthesis, lumbosacral region; R79.89 Other specified abnormal findings of blood chemistry; E55.9 Vitamin D deficiency, unspecified; H53.8 Other visual disturbances; B07.0 Plantar wart; E66.9 Obesity, unspecified; Z68.34 Body mass index [BMI] 34.0-34.9, adult; F17.200 Nicotine dependence, unspecified, uncomplicated; Z13.31 Encounter for screening for depression; Z13.30 Encounter for screening examination for mental health and behavioral disorders, unspecified | CPT/HCPCS: 96127; 99212 ==

== ENCOUNTER 2025-06-01 07:14 | Outpatient (REF) | payer OTHER, SELFPAY ==
[2025-06-01 07:29] LABS: MANUAL DIFF FLAG NO
[2025-06-01 07:44] LABS: Hematocrit 41.9 % (42.0-52.0); Hemoglobin 14.8 g/dl (14.0-18.0); Imm Gran Abs Auto 0.01 X10*3/uL (0.00-0.03); Imm Gran Pct Auto 0.1 % (0.0-0.4); Lymphocytes Absolute Auto 2.3 X10*3/uL (1.2-4.9); Mean Corpuscular HGB Conc 35.3 g/dl (31.0-36.0); Mean Corpuscular Hemoglobin 30.5 pg (27.0-33.0); Mean Corpuscular Volume 86.2 fL (80.0-98.0); NRBC Abs Auto 0.000 X10*3/uL (0.0-0.012); NRBC Pct Auto 0.0 /100WBC (0.0-0.2); Platelet Count 300 X10*3/uL (160-400); Red Blood Count 4.86 X10*6/uL (4.60-5.80); White Blood Count 6.8 X10*3/uL (4.8-10.8)
[2025-06-01 08:26] LABS: Alanine Aminotransferase 35 U/L (0-40); Albumin Level 4.4 g/dL (3.5-5.0); Alkaline Phosphatase 113 U/L (39-117); Anion Gap 11 (12-20); Aspartate Amino Transferase 36 U/L (5-37); Blood Urea Nitrogen 14 mg/dL (9-16); Calcium 8.8 mg/dL (8.4-10.2); Carbon Dioxide 25 mmol/L (22-29); Chloride 107 mmol/L (96-108); Cholesterol 259 mg/dL (<200); Estimated Glomerular Filt Rate > 60; HDL Cholesterol 28 mg/dL (>40); Potassium 3.7 mmol/L (3.3-5.1); Sodium 139 mmol/L (135-145); Total Protein 7.4 g/dL (6.5-8.0); Triglycerides 199 mg/dL (<150)
== END 2025-06-01 07:15 | disposition home or self-care (01) ==
LOC: HO.LAB 07:14
PROVIDERS: PCP Internal Medicine; Visit Provider Internal Medicine
DX: D64.9 Anemia, unspecified (principal); E78.00 Pure hypercholesterolemia, unspecified; E55.9 Vitamin D deficiency, unspecified
CPT/HCPCS: 36415; 80053; 80061; 82306; 85025

== ENCOUNTER 2025-10-01 08:50 | Outpatient (AMB) | payer OTHER, SELFPAY ==
[2025-10-01 09:03] VITALS: BP 118/90; PULSE 89; TEMP 36.3; O2SAT 96; BMI 34.9
--- NOTE | 2025-10-01 09:03 | MHC.PC.OV ---
Vital Signs 10/01/25 09:03 Height 5 ft 6 in Weight 216 lb 6 oz BMI 34.9 BP 118/90 H Blood Pressure Location Lt brachial Position Sitting Pulse 89 Pulse Source Pulse Oximeter Temp 97.3 F Temp Source Temporal Artery Scan Pulse Oximetry (%) 96 Oxygen Delivery Method Room Air Intake Visit Reasons: 4 mnth f/u Intake Counselor Required: No Accompanied by: Self / Same As Patient Allergies No Known Allergies Allergy (Verified 10/01/25 09:36) Medication List - Last Reconciled 10/01/25 by Alexys Gonzalez MD albuterol sulfate 90 mcg/actuation 2 puffs inhalation Q6H PRN budesonide-formoterol 160-4.5 mcg/actuation (Symbicort) 2 puffs inhalation BID cholecalciferol (vitamin D3) 125 mcg PO DAILY 90 days diclofenac sodium 1% 4 grams topical BID Tobacco use date assessed: 10/01/25 Dental Screening Dental Screen Date: 10/01/25 Did you have a dental visit in the last 12 months?: No Did you have a dental problem in the last 6 months where you did not have access to dental care?: No Was dental information given to patient?: Patient has dentist HPI 4 mnth f/u HPI Details Patient comes in today for his follow up visit States that he currently feels okay but has what appears to be a cyst or mass over the lateral side of his left elbow that he states he's had for the past 3 weeks now States that the cyst/mass is not painful but he notices some numbness in the left hand when pressure is applied on this mass Also notes that his left hand has been feeling weaker recently and he has a tendency to drop things that he is holding with his left hand at times He denies any headaches or dizziness Denies any chest pains, no SOB No nausea/vomiting, no abdominal pain No change in bowel habits noted He did not get his follow up labs done recently but relates that he went for his labs about 2 to 3 days after his last visit [facility] Medical History Impaired fasting glucose Elevated LFTs Mixed hyperlipidemia Spondylolisthesis of lumbosacral region Obesity (BMI 30-39.9) Vitamin D deficiency Pure hypercholesterolemia Smoker Surgical History No pertinent past surgical history Family History Mother Diabetes mellitus Father Myocardial infarction Social History Housing: Apartment Patient Tobacco Use Status: Current everyday Tobacco user Tobacco use type: Cigarette e-Cigarette/Vaping Use: Never Used Second Hand Smoke Exposure: Yes service: No Current occupational status: unemployed Current occupational exposures/hazards: No Cognitive needs: No Hearing needs: No Vision needs: No Questionnaire PHQ-9 Over the last 2 weeks, how often have you been bothered by any of the following problems? 1. Little interest or pleasure in doing things: not at all 2. Feeling down, depressed, or hopeless: not at all 3. Trouble falling or staying asleep, or sleeping too much: not at all 4. Feeling tired or having little energy: not at all 5. Poor appetite or overeating: not at all 6. Feeling bad about yourself - or that you are a failure or have let yourself or your family down: not at all 7. Trouble concentrating on things, such as reading the newspaper or watching television: not at all 8. Moving or speaking so slowly that other people could have noticed. Or the opposite - being so fidgety or restless that you have been moving around a lot more than usual: not at all 9. Thoughts that you would be better off or of hurting yourself in some way: not at all Total score: 0 Depression Screening Interpretation: Negative Depression Screening Done: Yes 29054 - PHQ-9 Billing: Yes Source: Developed by Drs. Bradley Jacobson, Nikky Evangelista, Car Ferrer and colleagues, with an educational fernanda from [employer]. Thrive Questionnaire Date Thrive assessed: 05/30/25 I am a: Patient What is your living situation today?: I have a steady place to live Within the past 12 months, did the food you bought not last and you didn't have the money to get more?: Never true Within the past 12 months, did you worry whether your food would run out before you got money to buy more?: Never true Do you have trouble paying for medicines?: No Do you have trouble getting transportation to medical appointments?: No Do you have trouble paying your heating and electricity bill?: No Do you have trouble taking care of your child, family member or friend?: Yes Do you have trouble with day-to-day activities such as bathing, preparing meals, shopping, managing finances, etc.?: No Are you currently unemployed and looking for a job?: No Are you interested in more education?: No Please select the resources that you would like help with: None Currently or been in a relationship where the following occur: No concerns reported THRIVE Score: 0 AUDIT C Alcohol Use Questionnaire (AUDIT-C) 1. How often do you have a drink containing alcohol?: Never 3. How often do you have six or more drinks on one occasion?: Never Total Score: 0 Score Reviewed/Action Taken: Yes TC-7 AMB Questionnaire TC-7 Date TC - 7 assessed: 05/30/25 Feeling nervous, anxious, or on edge: 0 = Not at all Not being able to stop or control worryin = Not at all Worrying too much about different things: 0 = Not at all Trouble relaxin = Not at all Being so restless that it is hard to sit still: 0 = Not at all Becoming easily annoyed or irritable: 0 = Not at all Feeling afraid as if something awful might happen: 0 = Not at all Total TC-7 score (0-4 normal; 5-9 mild; 10-14 moderate; 15-21 severe): 0 Source: Developed by Drs. Bradley Jacobson, Nikky Evangelista, Car Ferrer and colleagues, with an educational fernanda from [employer]. Review of Systems Const Denies chills, Denies fatigue, Denies fever(s) and Denies headache(s) ENT Denies dysphagia, Denies dizziness, Denies otalgia, Denies headache(s), Denies neck pain, Denies odynophagia and Denies sore throat Card Denies chest pain, Denies irregular heart rhythm, Denies palpitations and Denies dyspnea Resp Denies chest congestion, Denies cough, Denies dyspnea and Denies wheezing GI Denies abdominal pain, Denies constipation, Denies dysphagia, Denies heartburn, Denies diarrhea, Denies nausea, Denies odynophagia and Denies vomiting Denies difficulty urinating, Denies dysuria, Denies nocturia and Denies urinary frequency Musc Details: (+) soft mass/cyst over the lateral aspect of his left elbow (see HPI) Reports as per HPI, Reports back pain (on and off, over the lower back), Denies arthralgias and Denies neck pain Skin/Breast Denies rash Neuro Denies dizziness, Denies headache(s), Reports focal weakness (of the left hand at times - see HPI) and Denies paresthesias Endo Denies fatigue and Denies palpitations Aller/Immun Denies wheezing Physical exam (Primary Care) Vital Signs: Last Vital Signs Temp 97.3 F 10/01/25 09:03 Pulse 89 10/01/25 09:03 BP 118/90 H 10/01/25 09:03 Pulse Ox 96 10/01/25 09:03 Oxygen Delivery Method Room Air 10/01/25 09:03 BMI result Body Mass Index 34.9 Tobacco/Smoking Status: Tobacco use Status Tobacco use date assessed 10/01/25 10/01/25 09:05 Patient Tobacco Use Status Current everyday Tobacco 10/01/25 09:05 Tobacco use type Cigarette 10/01/25 09:11 e-Cigarette/Vaping Use Never Used 10/01/25 09:05 PHQ-9: PHQ-9 Score PHQ-9: Total score 0 10/01/25 09:05 Depression Screening Interpretation: Negative Thrive Assessment: Date of Thrive Assessment Date Thrive assessed 05/30/25 10/01/25 09:05 Currently or been in a relationship where the following occur: No concerns reported Const General: no acute distress and alert HENMT Throat: Yes posterior oropharynx normal and Yes tonsils normal (no TP congestion) Neck Neck: Yes supple and No lymphadenopathy Thyroid: Thyroid normal Resp Auscultation: clear to auscultation bilaterally, no crackles, no rales and no wheezes Cardio Rate: regular rate Rhythm: regular rhythm Heart sounds: no murmurs GI Palpation (GI): Soft to palpation and nontender Auscultation: normal bowel sounds General: Yes no CVA tenderness Back/Spine/Pelvis Back: no CVA tenderness Cervical Spine: No Cervical spine tenderness Thoracic/Lumbar Spine: lumbar spinal tenderness (mild) Skin Rashes: no rashes Extrem General: Yes no clubbing, cyanosis or edema Left upper extremity: elbow/forearm ((+) soft, non-tender mass/cyst on the lateral aspect of the elbow) Results Reviewed Results Reviewed: Laboratory Tests 11/20/24 11/20/24 06/01/25 10:36 10:42 07:27 WBC 6.8 Hgb 14.8 Hct 41.9 L Plt Count 300 Sodium 139 Potassium 3.7 Creatinine 0.63 Estimated GFR > 60 Fasting Glucose 112 H Calcium 8.8 D AST 36 ALT 35 Triglycerides 199 H Cholesterol 259 H LDL Cholesterol, Calc 192 H HDL Cholesterol 28 L 25-OH Vitamin D Total 26.1 L TSH 2.48 Ur Specific [place] 1.025 Urine Protein 30 (1+) H Urine Glucose (UA) Negative Urine Blood Negative Urine Nitrite Negative Ur Leukocyte Esterase Negative Coding Level of Care Code Est Pt Level 4 (86059) Diagnoses Mixed hyperlipidemia E78.2 Impaired fasting glucose R73.01 Elevated LFTs R79.89 Spondylolisthesis of lumbosacral region M43.17 Vitamin D deficiency E55.9 Mass of joint of left elbow M25.822 Blurred vision, bilateral H53.8 Smoker F17.200 Obesity (BMI 30-39.9) E66.9 Additional Codes PHQ-9 - 19987 - PHQ-9 Billing: Yes ([id number]) Assessment & Plan Assessment & Plan (1) Mixed hyperlipidemia: Code(s): E78.2 - Mixed hyperlipidemia Category: Medical Plan: He was again not able to get his follow up labs done prior to his appointment today but he did have some labs done a few days after his last visit in May 2025 Have advised patient that his cholesterol numbers did improve slightly then compared to his numbers last year - his total cholesterol then was at 259 mg/dl and LDL cholesterol at 192 mg/dl (from 301 mg/dl and 219 mg/dl respectively) He was on Simvastatin in the past but he self-discontinued his Rx sometime ago and would like to continue trying to lower his cholesterol numbers with diet modification alone at this time States that if he cannot make any significant improvement on his numbers over the next few months, then he will agree to go back on oral cholesterol medications Will have him recheck his labs and fasting lipids in again in 4 months for follow up and he is reminded again to try to get these done BEFORE he comes in for his appointment - will just have patient use his current lab orders (updated) for his next lab draw (2) Impaired fasting glucose: Code(s): R73.01 - Impaired fasting glucose Category: Medical Plan: Have advised patient that his fasting serum glucose was also elevated at 112 mg/dl on his labs done back in May 2025 He rports (+) family Hx of diabetes (mother) Discussed low calorie / low carb diet Will have patient recheck his FBS and also check his HgbA1c in 4 months for follow up / further evaluation (3) Elevated LFTs: Code(s): R79.89 - Other specified abnormal findings of blood chemistry Category: Medical Plan: His LFTs were both normal on his labs done back in May 2025 This is again likely related to his weight (hepatosteatosis) and will continue to monitor his LFTs regularly (4) Spondylolisthesis of lumbosacral region: Comment: lumbar spine MRI done in 08/2013 revealed (+) grade 1 anterolisthesis at L5-S1, with minimal disc bulge at L1-L2; was seen by Dr. Moise in 08/2015 and recommended conservative management at the time Code(s): M43.17 - Spondylolisthesis, lumbosacral region Category: Medical Plan: Reinforced activity and weight-lifting restrictions to minimize aggravating his low back pain (5) Vitamin D deficiency: Code(s): E55.9 - Vitamin D deficiency, unspecified Category: Medical Plan: Improving Continue Vitamin D3 5000 units QD (6) Mass of joint of left elbow: Code(s): M25.822 - Other specified joint disorders, left elbow Category: Medical Plan: Will send him for x-rays of the left elbow NARDA for further evaluation If x-rays are unrevealing, an MRI and/or orthopedics consult may be needed for further evaluation and management (7) Blurred vision, bilateral: Code(s): H53.8 - Other visual disturbances Category: Medical Plan: He was reportedly seen by ophthalmology last week and started on some unrecalled eyedrops for his eyes Will try to obtain a copy of his recent OV notes from ophthalmology for review and documentation (8) Smoker: Code(s): F17.200 - Nicotine dependence, unspecified, uncomplicated Category: Social Hx Plan: Patient is counseled again on complete smoking cessation - states that he has no plans to quit at this time Continue Symbicort 160-4.5 mcg 1 inhalation BID and Ventolin HFA 1 to 2 inhalations Q 6 hours PRN for now Chest x-rays done in November 2024 came out normal aside from some mild central bronchial wall thickening Will consider sending him for PFTs at some point for further evaluation as he denies any Hx of asthma and he thinks that he is using his inhalers mostly because of his smoking although his previous PCP marked asthma as one of his diagnosis in his chart (9) Obesity (BMI 30-39.9): Code(s): E66.9 - Obesity, unspecified Category: Medical Plan: Reinforced diet/exercise as tolerated/lose weight Plan Follow up in 3 months Orders: Orders Complete Blood Count Auto Diff 12/29/25 D64.9 - Anemia, unspecified Hemoglobin A1c 12/29/25 R73.01 - Impaired fasting glucose XR elbow LT min 3V Today M25.822 - Other specified joint disorders, left elbow
--- OUTSIDE RECORDS SUMMARY | 2025-10-01 09:17 | XMS_ITS | Clinical Summary ---
Author Organization [address] [facility] Address [address] [place] [address] Phone Care Team Providers Care [employer]ater Name Role Phone Alexys Gonzalez MD Primary Care Provider [phone] Allergies No known active allergies Medications No known medications Encounters Date Type Department Care Team Description 09/17/2025 8:30 AM EDT Office Visit Orthopedic Surgery [facility] [address] [phone] Jose Daniel Chavez DPM Arthritis of both feet (Primary Dx); Pain in both feet; Metatarsalgia of right foot; Eccrine poroma of foot, left; Dermatophytosis, nail 07/16/2025 9:15 AM EDT Office Visit Orthopedic [facility] [address] [phone] Jose Daniel Chavez DPM Arthritis of both feet (Primary Dx); Pain in both feet; Metatarsalgia of left foot; Eccrine poroma of foot, left; Dermatophytosis, nail from Last 3 Months Social History Tobacco Use Types Packs/Day Years Used Date Smoking Tobacco: Never Assessed Sex and Gender Information Value Date Recorded Sex Assigned at Not on file Legal Sex Male 8:42 AM EDT Gender Identity Not on file Sexual Orientation Not on file Last Filed Vital Signs Vital Sign Reading Time Taken Comments Blood Pressure - - Pulse - - Temperature - - Respiratory Rate - - Oxygen Saturation - - Inhaled Oxygen Concentration - - Weight 81.6 kg (180 lb) 05/14/2025 9:43 AM EDT Height 170.2 cm (5' 7 ) 05/14/2025 9:43 AM EDT Body Mass Index 28.19 05/14/2025 9:43 AM EDT Plan of Treatment Upcoming Encounters Date Type Department Care Team (Late st Contact Info) Description 11/19/2025 8:45 AM EST Office Visit Orthopedic Surgery - [place] [address] [facility] [address] [place] [phone] Jose Daniel Chavez, DPM [address] [facility] [address] [place] [address] Health Maintenance Due Date Last Done Comments Hepatitis B Vaccines (1 of 3 - 19+ 3-dose series) 01/21/2003 HPV Vaccines (1 - 3-dose SCD M series) 01/21/2011 COVID-19 Vaccine (3 - Modern a risk series) 04/22/2021 03/25/2021, 02/25/2021 Depression Screening 11/22/2024 Cholesterol Screening (Lipid Panel) 03/23/2025 HIV Screening 03/23/2025 Hepatitis C Screening 03/23/2025 Social Influencers of Health Screening 03/23/2025 Influenza Vaccine (#1) 2025 DTaP,Tdap,and Td Vaccines (2 - Td or Tdap) 11/05/2027 11/05/2017 RSV Immunization Adult Patients (1 - 1-dose 75+ series) 01/21/2059 Pneumococcal Vaccine: Pediatrics (0 to 5 Years) and At-Risk Patients (6 to 49 Years) Aged Out 11/05/2017 No longer eligible b ased on patient's age to complete this topic HIB Vaccines Aged Out No longer eligi ble based on patient's age to complete this topic Hepatitis A Vaccines Aged Out No long er eligible based on patient's age to complete this topic IPV Vaccines Aged Out No longer eligi ble based on patient's age to complete this topic MMR Vaccines Aged Out No longer eligi ble based on patient's age to complete this topic Meningococcal ACWY Vaccine Aged Out N o longer eligible based on patient's age to complete this topic Meningococcal B Vaccine Aged Out No l onger eligible based on patient's age to complete this topic RSV Immunization Patients Under 20 months Aged Out No longer eligible b ased on patient's age to complete this topic Varicella Vaccines Aged Out No longer eligible based on patient's age to complete this topic Insurance PLAN Care Teams [employer]ater Relationship Specialty Start Date End Date Alexys Gonzalez MD [address] [place] [address] [address] [place], [place] PCP - General Internal Medicine 03/23/25
== END 2025-10-01 10:18 | disposition home or self-care (01) ==
LOC: HO.HMCH 08:51
PROVIDERS: PCP Internal Medicine; Visit Provider Internal Medicine
DX: E78.2 Mixed hyperlipidemia (principal); R73.01 Impaired fasting glucose; E66.9 Obesity, unspecified; Z68.34 Body mass index [BMI] 34.0-34.9, adult; R79.89 Other specified abnormal findings of blood chemistry; M43.17 Spondylolisthesis, lumbosacral region; E55.9 Vitamin D deficiency, unspecified; M25.822 Other specified joint disorders, left elbow; H53.8 Other visual disturbances; F17.200 Nicotine dependence, unspecified, uncomplicated

== ENCOUNTER → 2025-10-01 08:50 | Outpatient (BNVA) | payer OTHER, SELFPAY | PROVIDERS: PCP Internal Medicine; Visit Provider Internal Medicine | DX: R20.0 Anesthesia of skin (principal); E78.2 Mixed hyperlipidemia; R73.01 Impaired fasting glucose; R79.89 Other specified abnormal findings of blood chemistry; M43.17 Spondylolisthesis, lumbosacral region; E55.9 Vitamin D deficiency, unspecified; M25.822 Other specified joint disorders, left elbow; H53.8 Other visual disturbances; E66.9 Obesity, unspecified; D64.9 Anemia, unspecified; F17.210 Nicotine dependence, cigarettes, uncomplicated; Z68.34 Body mass index [BMI] 34.0-34.9, adult | CPT/HCPCS: 96127; 99212 ==